=== PATIENT | female | born 1960 | race American Indian/Alaskan Native ===

== ENCOUNTER 2019-01-11 10:30 | Emergency (ER) | payer MEDICARE ==
[2019-01-11 11:13] VITALS: BP 151/90
--- NOTE | 2019-01-11 12:26 | Emergency Department Report ---
ED Back Pain/Injury HPI - General Chief Complaint: Back Pain/Injury Stated Complaint: BACK PAIN EXTREME Time Seen by Provider: 01/11/19 10:59 Source: patient Limitations: No Limitations - History of Present Illness Initial Comments: This is a 58-year-old -[place]ian female who presents to the emergency room with low back pain for 2-3 months. Past medical history of diabetes, HIV, or neuropathy, and diabetic neuropathy. Patient states she was seen by an orthopedic surgeon 2 months ago and diagnosed with muscle spasms to the lower back. Patient states she was referred to physical therapy but didn't follow-up. Also reports orthopedic surgeon prescribed tramadol which is not improving symptoms. Reports a back pain is worse with movement. States back pain is relieved by immobility. Denies radiating pain, numbness or tingling, swelling, paresthesias, weakness, bruising, recent injury, change in urinary or bowel pattern, urinary frequency, urgency, or dysuria. MD Complaint: back pain Onset/Timin -: month(s) Similar Symptoms Previously: Yes Place: home Radiation: none Severity: moderate Severity scale (0 -10): 8 Quality: aching Consistency: intermittent Improves With: immobilization, supine Worsens With: movement, walking Context: unknown Associated Symptoms: denies: numbness, difficulty urinating, incontinence, fever/chills Treatments Prior to Arrival: heat therapy, prescription analgesics - Related Data Previous Rx's Medication Instructions Recorded Last Taken Type methOCARBAMOL [Robaxin TAB] 500 mg PO TID PRN #20 tablet 01/11/19 Unknown Rx Allergies Allergy/AdvReac Type Severity Reaction Status Date / Time No Known Allergies Allergy Unverified 01/11/19 10:35 ED Review of Systems ROS: Stated complaint: BACK PAIN EXTREME Other details as noted in HPI Constitutional: denies: chills, fever Respiratory: denies: cough, shortness of breath, wheezing Cardiovascular: denies: chest pain, palpitations Gastrointestinal: denies: abdominal pain, nausea, diarrhea Musculoskeletal: back pain. denies: joint swelling, arthralgia Skin: denies: rash, lesions Neurological: denies: headache, weakness, paresthesias Psychiatric: denies: anxiety, depression ED Past Medical Hx - Past Medical History Neuropathy ED Back Pain Physical Exam - Exam General: Vital signs noted. No distress. Alert and acting appropriately. Back/Abdomen: Yes Sacroiliac Tenderness (tenderness bilaterally, no midline tenderness, step-off, deformity, erythema, or swelling), No Abdominal Tenderness, No Perithoracic Tenderness, No Perilumbar Tenderness, No Flank Tenderness, No Straight Leg Raise Pain Neuro: Yes Normal Sensation, Yes Normal DTR's, Yes Normal Gait, No Motor Weakness ED Course Vital Signs 01/11/19 01/11/19 10:38 10:57 Temperature 98.4 F 98.2 F Pulse Rate 74 84 Respiratory 14 14 Rate Blood Pressure 151/90 Blood Pressure 126/46 [Right] O2 Sat by Pulse 100 98 Oximetry ED Medical Decision Making - Medical Decision Making Patient was examined by me. Patient is nontoxic appearing and stable. Vitals are normal. There is bilateral sacroiliac tenderness, no midline tenderness, step-off, deformity, erythema, or swelling. Negative straight leg test. Denies urinary symptoms. Given analgesics while in the ER. Physical findings susceptible of acute on chronic low back pain. Patient is seeing an orthopedic surgeon. Diagnosed with muscle spasms to the lumbar sacral by orthopedic surgeon. She was referred to physical therapy with no follow-up. She is currently taking tramadol. Will start muscle relaxers. Instructed to follow back up with her orthopedic surgeon. Patient informed of the emergency room plan and agreed to plan. Patient discharged home in stable condition. Critical care attestation.: If time is entered above; I have spent that time in minutes in the direct care of this critically ill patient, excluding procedure time. ED Disposition Clinical Impression: Strain of muscle, fascia and tendon of lower back, initial encounter Low back pain Qualifiers: Chronicity: acute Back pain laterality: bilateral Sciatica presence: without sciatica Qualified Code(s): M54.5 - Low back pain Disposition: - TO HOME OR SELFCARE Is pt being admited?: No Condition: Stable Instructions: Muscle Strain (ED) Additional Instructions: Rest Use ice or heat on affected area for 20 minutes and off for 2 hours. Take pain medication as needed for pain. Don't drive or operate heavy machinery while taking muscle relaxers because they may cause drowsiness. Follow up with Primary Care Provider in 2-3 days. Prescriptions: methOCARBAMOL [Robaxin TAB] 500 mg PO TID PRN #20 tablet PRN Reason: Muscle Spasm Referrals: JEFF ARMANDO NP-C [Primary Care Provider] - 3-5 Days WILLOW APARICIO MD [Staff Physician] - 3-5 Days [facility] [Provider Group] - 3-5 Days [facility], [Provider Group] - 3-5 Days Time of Disposition: 12:29
[2019-01-11] MEDS ORDERED: KETOROLAC 30 MG/1 ML INJ IM ONE (12:31)
== END 2019-01-11 13:22 | disposition home or self-care (01) ==
LOC: ED 10:30
DX: S39.012A Strain of muscle, fascia and tendon of lower back, initial encounter (principal); E11.40 Type 2 diabetes mellitus with diabetic neuropathy, unspecified; Z21 Asymptomatic human immunodeficiency virus [HIV] infection status; Z79.899 Other long term (current) drug therapy; X58.XXXA Exposure to other specified factors, initial encounter; Y93.89 Activity, other specified; Y92.89 Other specified places as the place of occurrence of the external cause; Y99.8 Other external cause status
CPT/HCPCS: 96372; 99282; J1885

== ENCOUNTER 2019-05-05 04:12 | Emergency (ER) | payer MEDICARE ==
[2019-05-05 04:19] VITALS: BP 110/68
[2019-05-05 05:03] LABS: Basophils # (Auto) 0.1 K/mm3 (0.0-0.1); Basophils % (Auto) 1.1 % (0.0-1.8); Eosinophils # (Auto) 0.2 K/mm3 (0.0-0.4); Eosinophils % (Auto) 2.3 % (0.0-4.3); Hematocrit 34.6 % (30.3-42.9); Hemoglobin 11.5 gm/dl (10.1-14.3); Lymphocytes # (Auto) 3.5 K/mm3 (1.2-5.4); Lymphocytes % (Auto) 45.6 % (13.4-35.0); Mean Corpuscular HGB Conc 33 % (30-34); Mean Corpuscular Volume 92 fl (79-97); Monocytes # (Auto) 0.4 K/mm3 (0.0-0.8); Monocytes % (Auto) 5.4 % (0.0-7.3); Platelet Count 167 K/mm3 (140-440); Red Blood Count 3.76 M/mm3 (3.65-5.03); Red Cell Distribution Width 14.4 % (13.2-15.2)
[2019-05-05 05:20] LABS: Alanine Aminotransferase 17 units/L (7-56); Albumin 3.7 g/dL (3.9-5); BUN/Creatinine Ratio 14; Blood Urea Nitrogen 15 mg/dL (7-17); Calcium 9.5 mg/dL (8.4-10.2); Hemolysis Index 2
[2019-05-05] MEDS ORDERED: ACETAMINOPHEN W/CODEINE 300-30 MG TAB PO ONE (05:33)
[2019-05-05 05:49] LABS: Bacteria,Urine 1+ /HPF (Negative); Bilirubin,Urine NEG (Negative); Blood,Urine NEG (Negative); Color,Urine Yellow (Yellow); Protein,Urine <15 mg/dL mg/dL (Negative); Urobilinogen,Urine < 2.0 mg/dL (<2.0)
[2019-05-05] MEDS: SODIUM CHLORIDE 0.9% 1000 ML 1,000 ML IV ONE ×2 (05:50→08:29)
--- NOTE | 2019-05-05 08:38 | Cat Scan Report ---
CT ABDOMEN AND PELVIS WITH CONTRAST HISTORY: Abdominal pain and back pain elevated lipase COMPARISON: None. TECHNIQUE: Axial CT images were obtained through the abdomen and pelvis after 100 cc of Omnipaque 300 intravenously. Sagittal and coronal reformatted images. All CT scans at this location are performed using CT dose reduction for ALARA by means of automated exposure control. FINDINGS: CT ABDOMEN: Lung Bases: Clear. Liver: A 2.1 cm hypodense lesion with subtle peripheral nodular enhancement is suspected in the anter ior left hepatic lobe. This probably represents a cavernous hemangioma. The remainder of the liver is unremarkable. Biliary: No significant abnormality. Spleen: No significant abnormality. Unenlarged. Pancreas: No significant abnormality. Adrenals: No significant abnormality. Kidneys: No significant abnormality. Lymphatics: No lymphadenopathy. Vasculature: No significant abnormality. Bowel/Peritoneum: No significant abnormality. No free air. No free fluid. Normal appendix. CT PELVIS: : A 2.3 cm partially calcified subserosal fibroid is identified in the anterior wall of the uterus to the left of midline. The ovaries, distal ureters and bladder are unremarkable. Osseous Structures: No significant abnormality. Additional Findings: A small umbilical hernia containing fat is noted with a 1.5 cm neck. IMPRESSION: No acute abdominal process is identified. Probable cavernous hemangioma in the left hepatic lobe. If further evaluation is needed multi phase C T with IV contrast or MRI with contrast could be obtained. Uterine fibroid. Small umbilical hernia containing fat. Signer Name: Ruben Sheets Jr, MD Signed: 05/05/2019 8:33 AM Workstation Name: [id number]
[2019-05-05] MEDS ORDERED: SODIUM CHLORIDE 0.9% 1000 ML 1,000 ML IV ONE (09:24)
--- NOTE | 2019-05-05 09:54 | Emergency Department Report ---
ED Abdominal Pain HPI - General Chief Complaint: Abdominal Pain Stated Complaint: LOWER BACK AND STOMACH PAIN PAINFUL URINATION Time Seen by Provider: 05/05/19 07:30 Source: patient Mode of arrival: Ambulatory Limitations: No Limitations - History of Present Illness Initial Comments: 58-year-old -[place] female presents to the emergency room complaining of lower back pain and lower abdominal pain for 1 week. Patient reports painful with urination. Patient denies any nausea vomiting. Patient has a history of diabetes HIV. MD Complaint: abdominal pain Severity scale (0 -10): 10 - Related Data Previous Rx's Medication Instructions Recorded Last Taken Type methOCARBAMOL [Robaxin TAB] 500 mg PO TID PRN #20 tablet 01/11/19 Unknown Rx Nitrofurantoin [place]/M-Cryst 100 mg PO Q12HR #20 capsule 05/05/19 Unknown Rx [Macrobid CAP] Allergies Allergy/AdvReac Type Severity Reaction Status Date / Time No Known Allergies Allergy Verified 05/05/19 04:17 ED Review of Systems ROS: Stated complaint: LOWER BACK AND STOMACH PAIN PAINFUL URINATION Other details as noted in HPI ED Past Medical Hx - Past Medical History Previous Medical History?: Yes Hx Diabetes: Yes Hx HIV: Yes Additional medical history: Neuropathy - Surgical History Past Surgical History?: Yes Additional Surgical History: C section - Social History Smoking Status: Current Every Day Smoker Substance Use Type: Alcohol - Medications Home Medications: Home Medications Medication Instructions Recorded Confirmed Last Taken Type methOCARBAMOL [Robaxin TAB] 500 mg PO TID PRN #20 tablet 01/11/19 Unknown Rx Nitrofurantoin [place]/M-Cryst 100 mg PO Q12HR #20 capsule 05/05/19 Unknown Rx [Macrobid CAP] ED Physical Exam - General Limitations: No Limitations ED Course Vital Signs 05/05/19 04:16 Temperature 98.9 F Pulse Rate 87 Respiratory 18 Rate Blood Pressure 110/68 O2 Sat by Pulse 99 Oximetry ED Medical Decision Making - Lab Data Result diagrams: 05/05/19 04:30 05/05/19 04:30 - Radiology Data Radiology results: report reviewed Patient: TERESSA KIRK MR#: [id number] 4 : 1960 Acct:[id number] Age/Sex: 58 / F ADM Date: 05/05/19 Loc: ED Attending Dr: Ordering Physician: MAHENDRA PASTRANA Date of Service: 05/05/19 Procedure(s): CT abdomen pelvis w con Accession Number(s): [id number] cc: MAHENDRA PASTRANA CT ABDOMEN AND PELVIS WITH CONTRAST HISTORY: Abdominal pain and back pain elevated lipase COMPARISON: None. TECHNIQUE: Axial CT images were obtained through the abdomen and pelvis after 100 cc of Omnipaque 300 intravenously. Sagittal and coronal reformatted images. All CT scans at this location are performed using CT dose reduction for ALARA by means of automated exposure control. FINDINGS: CT ABDOMEN: Lung Bases: Clear. Liver: A 2.1 cm hypodense lesion with subtle peripheral nodular enhancement is suspected in the anterior left hepatic lobe. This probably represents a cavernous hemangioma. The remainder of the liver is unremarkable. Biliary: No significant abnormality. Spleen: No significant abnormality. Unenlarged. Pancreas: No significant abnormality. Adrenals: No significant abnormality. Kidneys: No significant abnormality. Lymphatics: No lymphadenopathy. Vasculature: No significant abnormality. Bowel/Peritoneum: No significant abnormality. No free air. No free fluid. Normal appendix. CT PELVIS: : A 2.3 cm partially calcified subserosal fibroid is identified in the anterior wall of the uterus to the left of midline. The ovaries, distal ureters and bladder are unremarkable. Osseous Structures: No significant abnormality. Additional Findings: A small umbilical hernia containing fat is noted with a 1.5 cm neck. IMPRESSION: No acute abdominal process is identified. Probable cavernous hemangioma in the left hepatic lobe. If further evaluation is needed multi phase CT with IV contrast or MRI with contrast could be obtained. Uterine fibroid. Small umbilical hernia containing fat. Signer Name: Ruben Sheets Jr, MD Signed: 05/05/2019 8:33 AM Workstation Name: [id number] Transcribed By: TTR Dictated By: RUBEN SHEETS JR, MD Electronically Authenticated By: RUBEN SHEETS JR, MD Signed Date/Time: 05/05/19832 DD/ 7 TD/TT: Critical care attestation.: If time is entered above; I have spent that time in minutes in the direct care of this critically ill patient, excluding procedure time. ED Disposition Clinical Impression: UTI (urinary tract infection) Disposition: - TO HOME OR SELFCARE Is pt being admited?: No Does the pt Need Aspirin: No Condition: Stable Instructions: Abdominal Pain (ED), Urinary Tract Infection in Women (ED) Additional Instructions: Ultrasounds negative for any acute findings. We will treat you for your urinary tract infection and to follow-up with your primary care provider Prescriptions: Nitrofurantoin [place]itt/M-Cryst [Macrobid CAP] 100 mg PO Q12HR #20 capsule Referrals: PRIMARY MD TWAN [Primary Care Provider] - 3-5 Days KAILA BEVERLY MD [Staff Physician] - 3-5 Days
== END 2019-05-05 10:18 | disposition home or self-care (01) ==
LOC: ED 04:12
DX: N39.0 Urinary tract infection, site not specified (principal); E11.9 Type 2 diabetes mellitus without complications; F17.200 Nicotine dependence, unspecified, uncomplicated; Z21 Asymptomatic human immunodeficiency virus [HIV] infection status; Z98.890 Other specified postprocedural states; Z79.899 Other long term (current) drug therapy
CPT/HCPCS: 36415; 74177; 80053; 81001; 83690; 85025; 99284; J7030; Q9967

== ENCOUNTER 2019-08-28 12:58 | Emergency (ER) | payer MEDICARE ==
[2019-08-28 13:53] VITALS: BP 130/49
--- NOTE | 2019-08-28 14:03 | Event Note ---
ED Screening Note Date of service: 08/28/19 Time: 14:01 ED Screening Note: Patient complains of nasal congestion and rhinorrhea for the past 2 days and also left leg pain for the past 3 days She does admit to a car ride to [place] 2 weeks ago and states her left lower leg feels swollen She denies any fever/chills/sweats, cough, chest pain, shortness of breath, nausea vomiting/diarrhea, or abdominal pain Patient is HIV positive and states she is compliant with her medications and has a normal T-cell count Patient is also diabetic and blood glucose runs around 180 Lungs are clear to auscultation bilaterally No sinus tenderness noted to palpation on exam This initial assessment/diagnostic orders/clinical plan/treatment(s) is/are subject to change based on patients health status, clinical progression and re- assessment by fellow clinical providers in the ED. Further treatment and workup at subsequent clinical providers discretion. Patient/guardian urged not to elope from the ED as their condition may be serious if not clinically assessed and managed. Initial orders include: Ultrasound
--- NOTE | 2019-08-28 15:13 | Vascular Lab Report ---
DUPLEX DOPPLER LOWER EXTREMITY VEINS, LEFT INDICATION / CLINICAL INFORMATION: pain in upper and lower leg. TECHNIQUE: Duplex doppler imaging was performed through the veins of the left lower extremity using venous compr ession and other maneuvers. COMPARISON: None available. FINDINGS: LEFT COMMON FEMORAL VEIN: Negative. LEFT FEMORAL VEIN: Negative. LEFT POPLITEAL VEIN: Negative. LEFT CALF VEINS: Negative. ADDITIONAL FINDINGS: None. IMPRESSION: 1. No sonographic evidence for DVT in the left lower extremity. Signer Name: Nas Bartlett MD Signed: 08/28/2019 3:08 PM Workstation Name: [id number]
== END 2019-08-28 15:30 ==
LOC: ED 12:58
DX: R09.81 Nasal congestion (principal); Z53.21 Procedure and treatment not carried out due to patient leaving prior to being seen by health care provider

== ENCOUNTER 2020-02-03 00:15 | Emergency (ER) | payer MEDICARE ==
[2020-02-03 00:36] VITALS: BP 177/88
== END 2020-02-03 04:17 | disposition left against medical advice (07) ==
LOC: ED 00:15
DX: E16.2 Hypoglycemia, unspecified (principal); Z53.21 Procedure and treatment not carried out due to patient leaving prior to being seen by health care provider
CPT/HCPCS: 82962

== ENCOUNTER 2020-07-25 15:51 | Emergency (ER) | payer MEDICARE ==
[2020-07-25 16:02] VITALS: BP 140/54
--- NOTE | 2020-07-25 17:38 | Event Note ---
ED Screening Note Date of service: 07/25/20 Time: 17:35 ED Screening Note: 59-year-old female patient with history of HIV, diabetes, and cocaine use presents to the emergency department complaints of painful bilateral lower extremity swelling for approximately 1 month. Pain is slightly worse on the right. No new medications. Patient has never been diagnosed with DVT. She is not anticoagulated. There was no preceding fall, trauma, or injury. Scheduled to see primary care provider on August 10. No chest pain or shortness of breath. General: Awake, appropriately interactive, no acute distress. Neck: Supple. Full range of motion intact. Cardiovascular: Normal peripheral perfusion. Pulmonary: No respiratory distress. Patient is speaking normally without use of accessory muscles. Skin: No apparent rashes or lesions. Neurological: No facial asymmetry. Speech is clear. Follows commands. Patient is alert and oriented. Musculoskeletal: Bilateral lower extremity tenderness, equal calf circumference. Psych: Cooperative. Appropriate mood and affect. Patient is not an appropriate candidate for D-dimer testing due to her underlying immunosuppression and drug use; venous duplex ultrasound of the lower extremities obtained for further evaluation in addition to laboratory studies. I have greeted and performed a focused rapid initial assessment of this patient. A comprehensive ED assessment and evaluation of the patient, analysis of all test results, and completion of the medical decision-making process will be conducted by additional ED providers. This initial assessment/diagnostic orders/clinical plan/treatment(s) is/are subject to change based on patients health status, clinical progression and re-assessment. Further treatment and workup at subsequent clinical provider's discretion. Patient/guardian urged not to elope from the ED as their condition may be serious if not clinically assessed and managed.
[2020-07-25 18:25] LABS: Basophils # (Auto) 0.1 K/mm3 (0.0-0.1); Basophils % (Auto) 1.1 % (0.0-1.8); Eosinophils # (Auto) 0.1 K/mm3 (0.0-0.4); Eosinophils % (Auto) 1.8 % (0.0-4.3); Hemoglobin 12.5 gm/dl (10.1-14.3); Lymphocytes # (Auto) 2.8 K/mm3 (1.2-5.4); Lymphocytes % (Auto) 35.4 % (13.4-35.0); Mean Corpuscular HGB Conc 34 % (30-34); Mean Corpuscular Volume 93 fl (79-97); Monocytes # (Auto) 0.5 K/mm3 (0.0-0.8); Monocytes % (Auto) 6.5 % (0.0-7.3); Platelet Count 174 K/mm3 (140-440); Red Blood Count 3.99 M/mm3 (3.65-5.03); Red Cell Distribution Width 13.7 % (13.2-15.2)
--- NOTE | 2020-07-25 18:29 | Vascular Lab Report ---
DUPLEX DOPPLER LOWER EXTREMITY VEINS, BILATERAL INDICATION / CLINICAL INFORMATION: Bilateral leg pain and swelling. TECHNIQUE: Duplex doppler imaging was performed through the veins of both lower extremities using venous niels nydia and other maneuvers. COMPARISON: None available. FINDINGS: RIGHT COMMON FEMORAL VEIN: Negative. RIGHT FEMORAL VEIN: Negative. RIGHT POPLITEAL VEIN: Negative. RIGHT CALF VEINS: Negative. LEFT COMMON FEMORAL VEIN: Negative. LEFT FEMORAL VEIN: Negative. LEFT POPLITEAL VEIN: Negative. LEFT CALF VEINS: Negative. ADDITIONAL FINDINGS: There is no evidence of a popliteal cyst or other significant abnormality. IMPRESSION: No sonographic evidence for DVT in either lower extremity. Signer Name: Dustin Sher MD Signed: 07/25/2020 6:24 PM Workstation Name: [id number]
[2020-07-25 18:48] LABS: Alanine Aminotransferase 17 units/L (7-56); Albumin 4.2 g/dL (3.9-5); BUN/Creatinine Ratio 13; Blood Urea Nitrogen 13 mg/dL (7-17); Calcium 8.7 mg/dL (8.4-10.2); Hemolysis Index 34
--- NOTE | 2020-07-25 20:46 | Emergency Department Report ---
ED Extremity Problem HPI - General Chief complaint: Extremity Injury, Lower Stated complaint: POSSIBLE BLOOD CLOTS/LT ANKLE TENDER Source: patient Mode of arrival: Ambulatory Limitations: No Limitations - History of Present Illness Initial comments: Patient is a 59-year-old -[place] female with a history of HIV, hypertension, okg-rmxnerk-upxcbfaxx diabetes and chronic renal disease who presents to the ED with complaint of acute onset persistent intermittent bilateral lower extremity pain and swelling for the last 2 months. Patient states that the symptoms usually get worse when she comes from work despite wearing compression stockings. 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 Patient denies chest pain, shortness of breath, fever, chills, nausea and vomiting, numbness and tingling or weakness of lower extremities bilaterally, back pain, hip pain, traumatic injury or heavy lifting. MD Complaint: extremity pain (Bilateral lower extremity swelling and pain), extremity swelling (Bilateral lower extremity swelling and pain), joint swelling -: Sudden, month(s) (2) Location: bilateral lower extremity History of Same: No -: Yes myalgia, Yes arthralgia, No associated dyspnea, No associated chest pain Radiation: distal Severity scale (0 -10): 6 Quality: aching, sharp Consistency: intermittent Improves with: nothing Worsens with: weight bearing, walking, exertion, palpation Associated Symptoms: denies other symptoms, myalgias, arthralgias. denies: chest pain, shortness of breath, fever, rash, other - Related Data Previous Rx's Medication Instructions Recorded Last Taken Type methOCARBAMOL [Robaxin TAB] 500 mg PO TID PRN #20 tablet 01/11/19 Unknown Rx Nitrofurantoin [place]/M-Cryst 100 mg PO Q12HR #20 capsule 05/05/19 Unknown Rx [Macrobid CAP] Baclofen 20 mg PO Q12H PRN #30 tablet 07/25/20 Unknown Rx Ibuprofen [Motrin] 800 mg PO Q8HR PRN #30 tablet 07/25/20 Unknown Rx Allergies Allergy/AdvReac Type Severity Reaction Status Date / Time No Known Allergies Allergy Verified 07/25/20 15:58 ED Review of Systems ROS: Stated complaint: POSSIBLE BLOOD CLOTS/LT ANKLE TENDER Other details as noted in HPI Constitutional: denies: chills, fever Eyes: denies: eye pain, eye discharge, vision change ENT: denies: ear pain, throat pain Respiratory: denies: cough, shortness of breath, wheezing Cardiovascular: denies: chest pain, palpitations Endocrine: no symptoms reported Gastrointestinal: denies: abdominal pain, nausea, vomiting, diarrhea Genitourinary: denies: urgency, dysuria, discharge Musculoskeletal: joint swelling (Bilateral lower extremity swelling and pain), arthralgia (Bilateral lower extremity pain and swelling), myalgia. denies: back pain Skin: denies: rash, lesions Neurological: denies: headache, weakness, paresthesias Psychiatric: denies: anxiety, depression Hematological/Lymphatic: denies: easy bleeding, easy bruising ED Past Medical Hx - Past Medical History Hx Hypertension: Yes Hx Diabetes: Yes Hx Renal Disease: Yes Hx HIV: Yes Additional medical history: Neuropathy - Surgical History Additional Surgical History: C section - Social History Smoking Status: Never Smoker Substance Use Type: None - Medications Home Medications: Home Medications Medication Instructions Recorded Confirmed Last Taken Type methOCARBAMOL [Robaxin TAB] 500 mg PO TID PRN #20 tablet 01/11/19 Unknown Rx Nitrofurantoin [place]/M-Cryst 100 mg PO Q12HR #20 capsule 05/05/19 Unknown Rx [Macrobid CAP] Baclofen 20 mg PO Q12H PRN #30 tablet 07/25/20 Unknown Rx Ibuprofen [Motrin] 800 mg PO Q8HR PRN #30 tablet 07/25/20 Unknown Rx ED Physical Exam - General Limitations: No Limitations General appearance: alert, in no apparent distress - Head Head exam: Present: atraumatic, normocephalic, normal inspection - Eye Eye exam: Present: normal appearance, PERRL, EOMI Pupils: Present: normal accommodation - ENT ENT exam: Present: normal exam, normal orophraynx, mucous membranes moist, TM's normal bilaterally, normal external ear exam - Neck Neck exam: Present: normal inspection, full ROM - Respiratory Respiratory exam: Present: normal lung sounds bilaterally. Absent: respiratory distress, wheezes, rales, chest wall tenderness, accessory muscle use, prolonged expiratory - Cardiovascular Cardiovascular Exam: Present: regular rate, normal rhythm, normal heart sounds. Absent: systolic murmur, diastolic murmur, rubs, gallop - GI/Abdominal GI/Abdominal exam: Present: soft, normal bowel sounds. Absent: tenderness, guarding, rebound, hyperactive bowel sounds, hypoactive bowel sounds - Extremities Exam Extremities exam: Present: normal inspection, full ROM, tenderness (Palpable mild reproducible lower extremity tenderness), normal capillary refill, calf tenderness. Absent: pedal edema, joint swelling - Back Exam Back exam: Present: normal inspection - Neurological Exam Neurological exam: Present: alert, oriented X3, CN II-XII intact, normal gait, reflexes normal - Psychiatric Psychiatric exam: Present: normal affect, normal mood, anxious - Skin Skin exam: Present: warm, dry, intact, normal color. Absent: rash ED Course Vital Signs 07/25/20 15:59 Temperature 98 F Pulse Rate 78 Respiratory 20 Rate Blood Pressure 140/54 O2 Sat by Pulse 97 Oximetry ED Medical Decision Making - Lab Data Result diagrams: 07/25/20 18:12 07/25/20 18:12 - Radiology Data Radiology results: report reviewed, image reviewed [facility] [address] [place] [address] Vascular Lab Report Signed Patient: TERESSA KIRK MR#: [id number] 4 : 1960 Acct:[id number] Age/Sex: 59 / F ADM Date: 07/25/20 Loc: ED Attending Dr: Ordering Physician: MAHENDRA LOO Date of Service: 07/25/20 Procedure(s): VL venous duplex LE BILAT Accession Number(s): [id number] cc: MAHENDRA LOO DUPLEX DOPPLER LOWER EXTREMITY VEINS, BILATERAL INDICATION / CLINICAL INFORMATION: Bilateral leg pain and swelling. TECHNIQUE: Duplex doppler imaging was performed through the veins of both lower extremities using venous compression and other maneuvers. COMPARISON: None available. FINDINGS: RIGHT COMMON FEMORAL VEIN: Negative. RIGHT FEMORAL VEIN: Negative. RIGHT POPLITEAL VEIN: Negative. RIGHT CALF VEINS: Negative. LEFT COMMON FEMORAL VEIN: Negative. LEFT FEMORAL VEIN: Negative. LEFT POPLITEAL VEIN: Negative. LEFT CALF VEINS: Negative. ADDITIONAL FINDINGS: There is no evidence of a popliteal cyst or other significant abnormality. IMPRESSION: No sonographic evidence for DVT in either lower extremity. Signer Name: Dustin Sher MD Signed: 07/25/2020 6:24 PM Workstation Name: [id number] Transcribed By: RT Dictated By: Dustin Sher MD Electronically Authenticated By: Dustin Sher MD Signed Date/Time: 07/25/201823 DD/ 22 TD/TT: - Medical Decision Making This is a 59-year-old -[place] female with a history of HIV, hypertension, hwf-yrzeoby-qqtfxbxwa diabetes and chronic renal disease who presents to the ED with complaint of acute onset persistent intermittent bilateral lower extremity pain and swelling for the last 2 months. Patient states that the symptoms usually get worse when she comes from work despite wearing compression stockings. 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 In the ED, patient is alert and oriented x3 and is not in any distress with normal vital signs. Bilateral lower extremity Doppler ultrasound showed no sonographic evidence of DVT. Based on the history and physical exam findings, lab test results and imaging reports, patient symptoms are likely due to muscle spasm or muscle strain. Patient was therefore discharged home on medications for pain and advised to follow-up with her primary care physician in 5 to 7 days for reevaluation. Patient is advised return to the ED immediately if symptoms get worse. - Differential Diagnosis Muscle strain; muscle spasm; DVT; osteoarthritis; tendinitis Critical care attestation.: If time is entered above; I have spent that time in minutes in the direct care of this critically ill patient, excluding procedure time. ED Disposition Clinical Impression: Muscle spasms of both lower extremities Muscle strain of lower extremity Qualifiers: Encounter type: initial encounter Laterality: unspecified laterality Qualified Code(s): S86.919A - Strain of unspecified muscle(s) and tendon(s) at lower leg level, unspecified leg, initial encounter Disposition: - TO HOME OR SELFCARE Is pt being admited?: No Does the pt Need Aspirin: No Condition: Stable Instructions: Muscle Cramps and Spasms, Begr-as-Gnie, Muscle Strain, Wvhh-tj-Bnxs Additional Instructions: All lab test results are reviewed and are all nonactionable. Bilateral lower extremity Doppler ultrasound showed no sonographic evidence of DVT or blood c lot. Your symptoms are likely due to muscle strain or muscle spasm of your lower extremities after strenuous physical activity. Therefore take medications with food, drink plenty of fluids and follow-up with your primary care physician in 5 to 7 days for reevaluation. Return to the ED immediately if symptoms get worse. Prescriptions: Baclofen 20 mg PO Q12H PRN #30 tablet PRN Reason: Muscle Spasm Ibuprofen [Motrin] 800 mg PO Q8HR PRN #30 tablet PRN Reason: Pain , Severe (7-10) Referrals: CORINNA SMITH MD [Primary Care Provider] - 3-5 Days Forms: Work/School Release Form(ED) Time of Disposition: 20:47 Print Language: BULGARIAN
== END 2020-07-25 21:00 | disposition home or self-care (01) ==
LOC: ED 15:51
DX: S86.912A Strain of unspecified muscle(s) and tendon(s) at lower leg level, left leg, initial encounter (principal); S86.911A Strain of unspecified muscle(s) and tendon(s) at lower leg level, right leg, initial encounter; I10 Essential (primary) hypertension; E11.9 Type 2 diabetes mellitus without complications; Z98.890 Other specified postprocedural states; Z79.899 Other long term (current) drug therapy; Z21 Asymptomatic human immunodeficiency virus [HIV] infection status; X58.XXXA Exposure to other specified factors, initial encounter; Y93.89 Activity, other specified; Y92.89 Other specified places as the place of occurrence of the external cause; Y99.8 Other external cause status
CPT/HCPCS: 36415; 80053; 83735; 85025; 93970

== ENCOUNTER 2020-10-29 13:14 | Emergency (ER) | payer MEDICARE ==
[2020-10-29 13:25] VITALS: BP 95/53
--- NOTE | 2020-10-29 14:26 | Emergency Department Report ---
ED General Adult HPI - General Chief complaint: Upper Respiratory Infection Stated complaint: COLD ABCESS ON MID BACK PUI?: No Time Seen by Provider: 10/29/20 14:11 Source: patient Mode of arrival: Ambulatory Limitations: No Limitations - History of Present Illness Initial comments: The patient was evaluated in the emergency department for symptoms described in the history of present illness. He/she was evaluated in the context of the global COVID-19 pandemic, which necessitated consideration that the patient might be at risk for infection with the virus that causes COVID-19. Institutional protocols and algorithms that pertain to the evaluation of patients at risk for COVID-19 are in a state of rapid change based on in formation released by regulatory bodies including the CDC and federal and state organizations. These policies and algorithms were followed during the patient's care in the emergency department. Please note that these policies, procedures and recommendations changed on a rapid basis. 60-year-old -[place] female with a current history of HIV and diabetes presents to the emergency room for a concern of a boil on her back and cold-like symptoms. Patient states that the boil on her back is been about 5 to 6 days as her somewhat scratching her back and feels that he had broken the skin. Patient states the following day she started to have tenderness and noticed some swelling. Patient also reports that she has been exposed to her son's girlfriend who was having cold-like symptoms. Patient complains of sinus pressure cough with green mucus. She does admit to diarrhea Saturday and and denies any loss of taste or smell. Patient states that she has had a history of bronchitis and has started using her inhaler. She denies any shortness of breath or chest pain no fevers or chills. Onset/Timin -: days(s) Location: back Severity scale (0 -10): 7 Quality: burning Consistency: constant Improves with: none Worsens with: none Associated Symptoms: cough. denies: chest pain, fever/chills, headaches, loss of appetite, nausea/vomiting, shortness of breath - Related Data Previous Rx's Medication Instructions Recorded Last Taken Type methOCARBAMOL [Robaxin TAB] 500 mg PO TID PRN #20 tablet 01/11/19 Unknown Rx Nitrofurantoin [place]/M-Cryst 100 mg PO Q12HR #20 capsule 05/05/19 Unknown Rx [Macrobid CAP] Baclofen 20 mg PO Q12H PRN #30 tablet 07/25/20 Unknown Rx Ibuprofen [Motrin] 800 mg PO Q8HR PRN #30 tablet 07/25/20 Unknown Rx Benzonatate [Tessalon Perles] 100 mg PO Q8HR PRN #12 capsule 10/29/20 Unknown Rx Sulfamethoxazole/Trimethoprim 1 each PO BID 10 Days #20 tablet 10/29/20 Unknown Rx [Bactrim DS TAB] traMADoL [Ultram 50 MG tab] 50 mg PO Q6HR PRN #12 tablet 10/29/20 Unknown Rx Allergies Allergy/AdvReac Type Severity Reaction Status Date / Time No Known Allergies Allergy Verified 10/29/20 13:20 ED Review of Systems ROS: Stated complaint: COLD ABCESS ON MID BACK Other details as noted in HPI ED Past Medical Hx - Past Medical History Hx Hypertension: Yes Hx Diabetes: Yes Hx Renal Disease: Yes Hx HIV: Yes Additional medical history: Neuropathy - Surgical History Additional Surgical History: C section - Social History Smoking Status: Current Some Day Smoker Substance Use Type: Alcohol, Marijuana - Medications Home Medications: Home Medications Medication Instructions Recorded Confirmed Last Taken Type methOCARBAMOL [Robaxin TAB] 500 mg PO TID PRN #20 tablet 01/11/19 Unknown Rx Nitrofurantoin [place]/M-Cryst 100 mg PO Q12HR #20 capsule 05/05/19 Unknown Rx [Macrobid CAP] Baclofen 20 mg PO Q12H PRN #30 tablet 07/25/20 Unknown Rx Ibuprofen [Motrin] 800 mg PO Q8HR PRN #30 tablet 07/25/20 Unknown Rx Benzonatate [Tessalon Perles] 100 mg PO Q8HR PRN #12 capsule 10/29/20 Unknown Rx Sulfamethoxazole/Trimethoprim 1 each PO BID 10 Days #20 tablet 10/29/20 Unknown Rx [Bactrim DS TAB] traMADoL [Ultram 50 MG tab] 50 mg PO Q6HR PRN #12 tablet 10/29/20 Unknown Rx ED Physical Exam - General Limitations: No Limitations General appearance: alert, in no apparent distress - Head Head exam: Present: atraumatic, normocephalic - Eye Eye exam: Present: normal appearance - ENT ENT exam: Present: normal external ear exam - Neck Neck exam: Present: normal inspection, full ROM - Respiratory Respiratory exam: Present: other (Coughing). Absent: respiratory distress, chest wall tenderness, accessory muscle use - Cardiovascular Cardiovascular Exam: Present: regular rate - Back Exam Back exam: Present: tenderness, other (Quarter size area that is erythematous and tender along the mid lower back) - Neurological Exam Neurological exam: Present: alert, oriented X3 - Psychiatric Psychiatric exam: Present: normal affect, normal mood ED Course Vital Signs 10/29/20 13:24 Temperature 98.4 F Pulse Rate 77 Respiratory 20 Rate Blood Pressure 95/53 O2 Sat by Pulse 98 Oximetry ED Medical Decision Making - Medical Decision Making 60-year-old -[place] female with a current history of HIV and diabetes presents to the emergency room for a concern of a boil on her back and cold-like symptoms. Patient states that the boil on her back is been about 5 to 6 days as her somewhat scratching her back and feels that he had broken the skin. Patient states the following day she started to have tenderness and noticed some swelling. Patient also reports that she has been exposed to her son's girlfriend who was having cold-like symptoms. Patient complains of sinus pressure cough with green mucus. She does admit to diarrhea Saturday and and denies any loss of taste or smell. Patient states that she has had a history of bronchitis and has started using her inhaler. She denies any shortness of breath or chest pain no fevers or chills. Discussed with patient that antibiotic for her cellulitis would also treat any upper respiratory infection. Discussed with patient she needs to increase her fluid intake. Take your pain medication as needed. Continue with all chronic medications. Follow-up with your primary care provider. Critical care attestation.: If time is entered above; I have spent that time in minutes in the direct care of this critically ill patient, excluding procedure time. ED Disposition Clinical Impression: Abscess or cellulitis of back Upper respiratory infection Qualifiers: URI type: unspecified URI Qualified Code(s): J06.9 - Acute upper respiratory infection, unspecified HIV (human immunodeficiency virus infection) Qualifiers: HIV symptom status: unspecified Qualified Code(s): B20 - Human immunodeficiency virus [HIV] disease Disposition: HOME / SELF CARE / HOMELESS Is pt being admited?: No Does the pt Need Aspirin: No Condition: Stable Instructions: Upper Respiratory Infection, Adult, Awti-ac-Nzts, Cellulitis, Adult, Isgh-tp-Mbbt Additional Instructions: Please complete antibiotic as prescribed pain medication as needed and cough medication as needed. Continue to use your inhaler as needed as well. If your symptoms persist or gets worse please return back to the emergency room. Please follow-up with your primary care provider in 3 to 5 days. Prescriptions: Sulfamethoxazole/Trimethoprim [Bactrim DS TAB] 1 each PO BID 10 Days #20 tablet Benzonatate [Tessalon Perles] 100 mg PO Q8HR PRN #12 capsule PRN Reason: Cough traMADoL [Ultram 50 MG tab] 50 mg PO Q6HR PRN #12 tablet PRN Reason: Pain Referrals: RENETTA CANDELARIA MD [Staff Physician] - 3-5 Days Forms: Work/School Release Form(ED) Time of Disposition: 14:30
== END 2020-10-29 14:46 | disposition home or self-care (01) ==
LOC: ED 13:14
DX: L02.212 Cutaneous abscess of back [any part, except buttock and flank] (principal); J06.9 Acute upper respiratory infection, unspecified; B20 Human immunodeficiency virus [HIV] disease; I12.9 Hypertensive chronic kidney disease with stage 1 through stage 4 chronic kidney disease, or unspecified chronic kidney disease; E11.22 Type 2 diabetes mellitus with diabetic chronic kidney disease; N18.9 Chronic kidney disease, unspecified; G62.9 Polyneuropathy, unspecified; Z98.890 Other specified postprocedural states; F17.200 Nicotine dependence, unspecified, uncomplicated
CPT/HCPCS: 99282

== ENCOUNTER 2020-11-01 23:24 | Emergency (ER) | payer MEDICARE ==
[2020-11-02 02:04] VITALS: BP 119/52
--- NOTE | 2020-11-02 04:36 | Emergency Department Report ---
ED Allergic Reaction HPI - General Chief complaint: Allergic Reaction Stated complaint: POSS ALLERGIC REACTION Time Seen by Provider: 11/02/20 03:04 Source: patient Mode of arrival: Ambulatory Limitations: No Limitations - History of Present Illness Initial Comments: 60-year-old female admitted from complaining of having allergic reaction involving her she started taking Bactrim and completed to the Bactrim her eyes became red and irritated. She can continue with the irritation of the eyes which was followed by axial decreased sensation heavy mucus status post MD Complaint: allergic reaction Symptoms: itching Treatment Prior to Arrival: none Previous Allergy History: none - Related Data Previous Rx's Medication Instructions Recorded Last Taken Type methOCARBAMOL [Robaxin TAB] 500 mg PO TID PRN #20 tablet 01/11/19 Unknown Rx Nitrofurantoin [place]/M-Cryst 100 mg PO Q12HR #20 capsule 05/05/19 Unknown Rx [Macrobid CAP] Baclofen 20 mg PO Q12H PRN #30 tablet 07/25/20 Unknown Rx Ibuprofen [Motrin] 800 mg PO Q8HR PRN #30 tablet 07/25/20 Unknown Rx Benzonatate [Tessalon Perles] 100 mg PO Q8HR PRN #12 capsule 10/29/20 Unknown Rx Sulfamethoxazole/Trimethoprim 1 each PO BID 10 Days #20 tablet 10/29/20 Unknown Rx [Bactrim DS TAB] traMADoL [Ultram 50 MG tab] 50 mg PO Q6HR PRN #12 tablet 10/29/20 Unknown Rx Olopatadine HCl [Pataday 0.2%] 1 drop OP QDAY #20 drops 11/02/20 Unknown Rx Tobramycin [Tobrex] 1 drop OP Q4H #1 bottle 11/02/20 Unknown Rx predniSONE [Deltasone] 20 mg PO QDAY #5 tab 11/02/20 Unknown Rx Allergies Allergy/AdvReac Type Severity Reaction Status Date / Time sulfamethoxazole Allergy Swelling Verified 11/02/20 01:51 [From Sulfamethoxazole-Trimethoprim] trimethoprim Allergy Swelling Verified 11/02/20 01:51 [From Sulfamethoxazole-Trimethoprim] ED Review of Systems ROS: Stated complaint: POSS ALLERGIC REACTION Other details as noted in HPI Comment: All other systems reviewed and negative ED Past Medical Hx - Past Medical History Hx Hypertension: Yes Hx Diabetes: Yes Hx Renal Disease: Yes Hx HIV: Yes Additional medical history: Neuropathy - Surgical History Additional Surgical History: C section - Social History Smoking Status: Current Some Day Smoker Substance Use Type: Alcohol, Marijuana - Medications Home Medications: Home Medications Medication Instructions Recorded Confirmed Last Taken Type methOCARBAMOL [Robaxin TAB] 500 mg PO TID PRN #20 tablet 01/11/19 Unknown Rx Nitrofurantoin [place]/M-Cryst 100 mg PO Q12HR #20 capsule 05/05/19 Unknown Rx [Macrobid CAP] Baclofen 20 mg PO Q12H PRN #30 tablet 07/25/20 Unknown Rx Ibuprofen [Motrin] 800 mg PO Q8HR PRN #30 tablet 07/25/20 Unknown Rx Benzonatate [Tessalon Perles] 100 mg PO Q8HR PRN #12 capsule 10/29/20 Unknown Rx Sulfamethoxazole/Trimethoprim 1 each PO BID 10 Days #20 tablet 10/29/20 Unknown Rx [Bactrim DS TAB] traMADoL [Ultram 50 MG tab] 50 mg PO Q6HR PRN #12 tablet 10/29/20 Unknown Rx Olopatadine HCl [Pataday 0.2%] 1 drop OP QDAY #20 drops 11/02/20 Unknown Rx Tobramycin [Tobrex] 1 drop OP Q4H #1 bottle 11/02/20 Unknown Rx predniSONE [Deltasone] 20 mg PO QDAY #5 tab 11/02/20 Unknown Rx ED Physical Exam - General Limitations: No Limitations General appearance: alert, in no apparent distress - Head Head exam: Present: atraumatic, normocephalic - Eye Eye exam: Present: normal appearance, PERRL, EOMI, conjunctival injection, other (Red injected conjunctiva no foreign body or discharge.) Pupils: Present: normal accommodation - ENT ENT exam: Present: normal exam, mucous membranes moist - Neck Neck exam: Present: normal inspection, full ROM. Absent: lymphadenopathy - Respiratory Respiratory exam: Present: normal lung sounds bilaterally. Absent: respiratory distress - Cardiovascular Cardiovascular Exam: Present: regular rate, normal rhythm. Absent: systolic murmur, diastolic murmur, rubs, gallop - GI/Abdominal GI/Abdominal exam: Present: soft, normal bowel sounds - Extremities Exam Extremities exam: Present: normal inspection - Back Exam Back exam: Present: normal inspection - Neurological Exam Neurological exam: Present: alert, oriented X3 - Psychiatric Psychiatric exam: Present: normal affect, normal mood - Skin Skin exam: Present: warm, dry, intact, normal color. Absent: rash ED Course Vital Signs 11/02/20 02:03 Temperature 98.0 F Pulse Rate 74 Respiratory 16 Rate Blood Pressure 119/52 [Right] O2 Sat by Pulse 99 Oximetry Critical care attestation.: If time is entered above; I have spent that time in minutes in the direct care of this critically ill patient, excluding procedure time. ED Disposition Clinical Impression: Conjunctivitis Disposition: HOME / SELF CARE / HOMELESS Is pt being admited?: No Does the pt Need Aspirin: No Condition: Stable Instructions: Bacterial Conjunctivitis, Adult, Jofl-lk-Ogvh, Allergic Conjunctivitis, Adult, Kvrr-aj-Nudk, How to Use Eye Drops and Eye Ointments Prescriptions: predniSONE [Deltasone] 20 mg PO QDAY #5 tab Olopatadine HCl [Pataday 0.2%] 1 drop OP QDAY #20 drops Tobramycin [Tobrex] 1 drop OP Q4H #1 bottle Referrals: CORINNA SMITH MD [Primary Care Provider] - 3-5 Days Forms: Work/School Release Form(ED)
== END 2020-11-02 04:52 | disposition home or self-care (01) ==
LOC: ED 23:24
DX: H10.9 Unspecified conjunctivitis (principal); I12.9 Hypertensive chronic kidney disease with stage 1 through stage 4 chronic kidney disease, or unspecified chronic kidney disease; E11.22 Type 2 diabetes mellitus with diabetic chronic kidney disease; N18.9 Chronic kidney disease, unspecified; B20 Human immunodeficiency virus [HIV] disease; G62.9 Polyneuropathy, unspecified; Z98.890 Other specified postprocedural states; F17.290 Nicotine dependence, other tobacco product, uncomplicated; Z88.2 Allergy status to sulfonamides
CPT/HCPCS: 99281

== ENCOUNTER 2021-01-08 14:55 | Emergency (ER) | payer MEDICARE ==
[2021-01-08 16:00] VITALS: BP 116/53
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
--- NOTE | 2021-01-08 16:52 | XRay Report ---
CHEST 2 VIEWS INDICATION / CLINICAL INFORMATION: L chest wall pain. COMPARISON: None available. FINDINGS: SUPPORT DEVICES: None. HEART / MEDIASTINUM: No significant abnormality. LUNGS / PLEURA: No significant pulmonary or pleural abnormality. No pneumothorax. ADDITIONAL FINDINGS: No significant additional findings. IMPRESSION: 1. No acute findings. Signer Name: Jose Guadalupe Piper MD Signed: 01/08/2021 4:48 PM Workstation Name: [id number]
== END 2021-01-08 17:24 | disposition home or self-care (01) ==
LOC: ED 14:55
DX: R07.89 Other chest pain (principal); I10 Essential (primary) hypertension; E11.42 Type 2 diabetes mellitus with diabetic polyneuropathy; F17.200 Nicotine dependence, unspecified, uncomplicated; F12.90 Cannabis use, unspecified, uncomplicated; Z72.89 Other problems related to lifestyle; Z88.2 Allergy status to sulfonamides; Z88.8 Allergy status to other drugs, medicaments and biological substances; Z79.899 Other long term (current) drug therapy
CPT/HCPCS: 71046; 99283

== ENCOUNTER 2021-06-08 13:02 | Emergency (ER) | payer OTHER, MEDICARE ==
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
[2021-06-08 17:45] VITALS: BP 124/80
== END 2021-06-08 17:45 | disposition home or self-care (01) ==
LOC: ED 13:02
DX: S13.4XXA Sprain of ligaments of cervical spine, initial encounter (principal); S39.92XA Unspecified injury of lower back, initial encounter; S49.92XA Unspecified injury of left shoulder and upper arm, initial encounter; I10 Essential (primary) hypertension; E11.9 Type 2 diabetes mellitus without complications; F17.200 Nicotine dependence, unspecified, uncomplicated; Z98.890 Other specified postprocedural states; F12.90 Cannabis use, unspecified, uncomplicated; Z88.2 Allergy status to sulfonamides; Z88.8 Allergy status to other drugs, medicaments and biological substances; V87.7XXA Person injured in collision between other specified motor vehicles (traffic), initial encounter; Y93.89 Activity, other specified; Y92.488 Other paved roadways as the place of occurrence of the external cause
CPT/HCPCS: 72040; 72100; 99283

== ENCOUNTER 2021-06-23 05:31 | Emergency (ER) | payer MEDICARE ==
--- NOTE | 2021-06-23 08:58 | XRay Report ---
CHEST 2 VIEWS INDICATION / CLINICAL INFORMATION: chest pain. COMPARISON: 01/08/2021 FINDINGS: SUPPORT DEVICES: None. HEART / MEDIASTINUM: No significant abnormality. LUNGS / PLEURA: No significant pulmonary or pleural abnormality. No pneumothorax. ADDITIONAL FINDINGS: No significant additional findings. IMPRESSION: 1. No acute findings. Signer Name: Giuseppe Carl MD Signed: 06/23/2021 8:54 AM Workstation Name: [id number]
[2021-06-23 09:42] LABS: Hematocrit 38.9 % (30.3-42.9); Hemoglobin 12.6 gm/dl (10.1-14.3); Mean Corpuscular HGB Conc 33 % (30-34); Mean Corpuscular Volume 93 fl (79-97); Platelet Count 187 K/mm3 (140-440); Red Cell Distribution Width 13.8 % (13.2-15.2)
[2021-06-23 10:17] LABS: Alanine Aminotransferase 15 units/L (7-56); Albumin 4.6 g/dL (3.9-5); BUN/Creatinine Ratio 18; Blood Urea Nitrogen 16 mg/dL (7-17); Calcium 9.9 mg/dL (8.4-10.2); Hemolysis Index 25
[2021-06-23] MEDS ORDERED: KETOROLAC 10 MG TAB PO ONE (14:34)
[2021-06-23] MEDS ORDERED: CYCLOBENZAPRINE 10 MG TAB PO ONE (14:34)
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
[2021-06-23 16:16] VITALS: BP 145/78
--- NOTE | 2021-06-23 17:17 | Electrocardiograph Report ---
[facility] Test Date: 2021-06-23 Test Time: 05:40:33 Pat Name: TERESSA KIRK Department: Room: Gender: F Product Grader: MEENA : 1960 Requested By: ROSA M HELMS Order Number: [id number] Reading MD: Rafeal Cespedes Measurements Intervals [place] Rate: 79 P: 59 [place]: 145 QRS: 32 QRSD: 81 T: 1 QT: 402 QTc: 461 Interpretive Statements Sinus rhythm No previous ECG available for comparison Electronically Signed On 06-23-2021 17:17:29 EDT by Rafael Cespedes
== END 2021-06-23 16:15 | disposition home or self-care (01) ==
LOC: ED 05:31
DX: M25.512 Pain in left shoulder (principal); H10.31 Unspecified acute conjunctivitis, right eye; F17.200 Nicotine dependence, unspecified, uncomplicated; F10.20 Alcohol dependence, uncomplicated; F12.90 Cannabis use, unspecified, uncomplicated; I10 Essential (primary) hypertension; E11.8 Type 2 diabetes mellitus with unspecified complications
CPT/HCPCS: 36415; 71046; 80053; 84484; 85027; 93005; 99284